=== PATIENT | male | born 1940 | race Caucasian/White ===

== ENCOUNTER → 2018-01-21 | Outpatient (CLI) | payer MEDICARE ==
--- NOTE | 2018-01-21 12:09 | XR ---
Left hip HISTORY: Pain 2 views of the left hip There is mild joint space loss. Bone mineralization is reduced. Alignment is maintained. No fracture or dislocation. Mild marginal spurring noted. There is a metallic density which is cylindrical over t he pelvis. Overlying artifact suspected at the lumbosacral junction. There are vascular calcification s within the pelvis. IMPRESSION: Osteoarthritis. Correlate for underlying foreign bodies.
--- NOTE | 2018-01-21 12:12 | XR ---
Lumbar spine HISTORY: Pain with radiculopathy 5 views of the lumbosacral spine There is a mild spinal curvature convex right centered at L4. There is multilevel spondylosis. Bone m ineralization is reduced. No evident spondylolysis. Lumbar vertebral bodies show preserved height. Mi nimal anterolisthesis grade 1 L4-5. Vacuum phenomenon present at L5-S1, multilevel loss of disc heigh t is present. Sclerosis present in the posterior elements. There are vascular calcifications noted. IMPRESSION: Degenerative disc disease, facet arthropathy, possible scoliosis, spondylolisthesis L4-5. Lumbar MRI likely would be of benefit.
== END | disposition home or self-care (01) ==
LOC: RADXRYALE 10:49
PROVIDERS: ATTEND Internal Medicine
DX: M51.16 Intervertebral disc disorders with radiculopathy, lumbar region (principal); M46.96 Unspecified inflammatory spondylopathy, lumbar region; M43.16 Spondylolisthesis, lumbar region; M16.12 Unilateral primary osteoarthritis, left hip
CPT/HCPCS: 72110; 73502